=== PATIENT | female | born 1990 | race Two or more races ===

== ENCOUNTER 2025-06-04 12:03 | Emergency (ER) | payer MEDICAID, SELFPAY ==
[2025-06-04] VITALS (12 sets, daily range): BP systolic 96–164; BP diastolic 61–127; PULSE 94–143; RESP 17–22; TEMP 36.9–37; O2SAT 92–99; BMI 34.2
--- NOTE | 2025-06-04 12:16 | EKG_ITS ---
[facility] Test Date: 2025-06-04 Pat Name: FEI MANRIQUE Department: Room: - Gender: Female Security Alarm Technician: : 1990 Requested By: Frank Servin Order Number: [id number] Reading MD: Frank Servin Measurements Intervals [place] Rate: 114 P: 64 SD: 164 QRS: 15 QRSD: 93 T: 33 QT: 333 QTc: 459 Interpretive Statements SINUS TACHYCARDIA ABNORMAL RHYTHM ECG No previous ECG available for comparison /store/S0/[id number].pdf
[2025-06-04] MEDS: RINGERS LACTATED 1000 ML 1,000 ML 999 ML IV (12:29)
[2025-06-04 12:35] LABS: Basophils # (Auto) 0.1 Thou/mm3 (0.0-0.2); Basophils % (Auto) 1 % (0-2.5); Eosinophils # (Auto) 0.4 Thou/mm3 (0.0-0.5); Eosinophils % (Auto) 4 % (0-10); Hematocrit 42.4 % (36.0-46.0); Hemoglobin 14.2 g/dL (12.0-16.0); Immature Granulocytes Auto 0.03 Thou/mm3 (0.00-0.00); Lymphocytes # (Auto) 3.7 Thou/mm3 (1.0-4.8); Lymphocytes % (Auto) 39 % (10-50); Mean Corpuscular HGB Conc 33.5 g/dl (31.0-37.0); Mean Corpuscular Hemoglobin 32.4 pg (25.0-35.0); Mean Corpuscular Volume 97 fL (80-100); Monocytes # (Auto) 0.6 Thou/mm3 (0.0-0.8); Monocytes % (Auto) 6 % (0-12); Neutrophils # (Auto) 4.8 Thou/mm3 (1.8-7.7); Neutrophils % (Auto) 51 % (37-80); Nucleated Red Blood Cell # 0.00 Thou/mm3 (0.00-0.00); Nucleated Red Blood Cell % 0 /100 WBC (0); Platelet Count 241 Thou/mm3 (140-440); RDW Standard Deviation 47.8 fL (36.4-46.3); Red Blood Count 4.38 Miln/mm3 (4.00-5.20); White Blood Count 9.5 Thou/mm3 (3.6-11.0)
--- NOTE | 2025-06-04 12:35 | EDNOTE_ITS ---
ED Overdose RME/HPI General Chief Complaint: Overdose Stated Complaint: OD Time Seen by Provider: 06/04/25 12:10 Arrival date/time: 06/04/25 12:03 RME / HPI RME / HPI Narrative: 35-year-old female with past medical history of cholelithiasis brought in by ambulance to [facility] ED on 06/04/2025 with a chief complaint of suspected drug overdose. Patient seems intoxicated on presentation, unable to provide history, most history obtained from EMS, according to EMS patient was found down by and he suspected that she ingested 9 pills of [place]. Patient was not given any Narcan on the way by EMS, woke up on the way vitals fairly stable except for elevated blood pressure and tachycardia. Patient on presentation has pills of alprazolam on her and reports that she ingested multiple pills of alprazolam and took some shots of vodka to help her sleep and she has not been able to sleep for the last few days. Time of ingestion unknown as patient was found down. Patient is uncooperative, abusive to staff and seems significantly intoxicated. Patient denies any suicidal ideation in the ED however did report and endorse suicidal ideations to EMS. Patient placed on 1799 hold. Called poison control and discussed the case reported vitals EKG findings to poison control they recommended monitoring for transaminitis and obtaining acetaminophen level if there is significant transaminitis and elevated acetaminophen level they recommend N-acetylcysteine. Recommending flumazenil however is unavailable at the facility and was deferred as it can precipitate severe withdrawal. Poison control recommended monitoring patient for 4 to 6 hours and repeating CMP in 4 hours to monitor LFTs and repeating acetaminophen level. Substance Ingested [place]: Number of Pills Ingested: 9 Related Data Home Medications ?Medication ?Instructions ?Recorded ?Confirmed No Known Home Medications 06/03/22 09/06/16 Allergies Allergy/AdvReac Type Severity Reaction Status Date / Time bee venom protein (honey bee) Allergy Severe Anaphylaxis Verified 06/04/25 12:10 Review of Systems Review of Systems ROS Unobtainable: unobtainable due to mental status (Patient intoxicated) Past Medical History Past Medical History Comments PMH COMMENT: Unable to obtain, patient intoxicated ED Exam Narrative Physical exam: Physical Exam General: Awake, abusive, noncooperative, yelling at staff. HEENT: Normocephalic, atraumatic, mucous membranes moist. Heart: Sinus tachycardia, no murmurs. Lungs: Clear to auscultation with no wheezing or crackles. Abdomen: Soft, obese, nondistended, nontender, positive bowel sounds. ?No guarding or rebound tenderness. Neurologic: Patient intoxicated noncooperative does not answer, no gross neurological deficit, and patient able to move all 4 extremities. Extremities: No edema. Skin: No rash or ecchymoses. Course Course Course Narrative: EKG labs obtained postadmission. Kurtis Ho post ground-level mechanical fall called for patient at 1414, patient walked to commode to urinate, urinated on herself and slipped in her urine, ground-level fall reportedly hit her head against the wall/sink, patient is intoxicated, yelling abuses at staff. Noncooperative trying to kick staff, kurtis osullivan called at 1415, 4 point behavioral restraints initiated, security personnel at bedside, patient given 10 mg IV Haldol and [address] scan of the head ordered obtained, unremarkable. Repeat labs ordered for 1630 Quality Measures none Orders Category Date Time Status 1 HR Behavioral Restraints Q15M Care 06/04/25 14:17 Completed 1799 Psychiatric Hold NOW Care 06/04/25 12:45 Ordered Blood glucose [Bedside Blood Glucose] NOW Care 06/04/25 12:16 Active Internal Medicine Doctor Q4H START 00 Care 06/04/25 12:18 Active Continuous Pulse Oximetry NOW Care 06/04/25 12:18 Completed EKG (ED ONLY) *Do not use* NOW Care 06/04/25 12:16 Completed Insert IV NOW Care 06/04/25 12:23 Active Suicide precautions NOW Care 06/04/25 12:[address] head/brain wo con Stat Exams 06/04/25 14:22 Completed EKG (ED Only) Stat Exams 06/04/25 12:16 Draft Acetaminophen Stat Lab 06/04/25 12:28 Completed Acetaminophen Stat Lab 06/04/25 16:22 Completed Alcohol, Blood Medical Stat Lab 06/04/25 12:28 Completed CBC Stat Lab 06/04/25 12:28 Completed CK [Creatine Kinase] Stat Lab 06/04/25 12:28 Completed CMP [Comprehensive Metabolic Panel] Stat Lab 06/04/25 12:28 Completed CMP [Comprehensive Metabolic Panel] Stat Lab 06/04/25 16:22 Completed Drug Screen,Urine Stat Lab 06/04/25 12:40 Completed HCG Qualitative,Urine Stat Lab 06/04/25 12:40 Completed HCG,Qualitative Serum Stat Lab 06/04/25 12:28 Completed INR [Prothrombin Time with INR] Stat Lab 06/04/25 12:20 Completed Magnesium Stat Lab 06/04/25 12:28 Completed PTT [Partial Thromboplastin Time] Stat Lab 06/04/25 12:20 Completed Phosphorous Stat Lab 06/04/25 12:28 Completed Salicylate Stat Lab 06/04/25 12:28 Completed Urinalysis, C/S if Indicated Stat Lab 06/04/25 12:40 Completed VBG [Venous Blood Gas] Stat Lab 06/04/25 12:50 Completed Folic Acid Inj Med 06/04/25 15:35 Discontinued 1 mg IVP X1 ONE Haloperidol Lactate [Haldol Inj] Med 06/04/25 14:18 Discontinued 10 mg .ROUTE .STK-MED ONE Haloperidol Lactate [Haldol Inj] Med 06/04/25 14:15 Discontinued 10 mg IV X1 ONE Midazolam Inj [Versed Inj] Med 06/04/25 14:18 Discontinued 2 mg .ROUTE .STK-MED ONE Midazolam Inj [Versed Inj] Med 06/04/25 14:15 Discontinued 2 mg IVP X1 ONE Ringers Lactated 1000 ml [Lactated Ringers] 1,000 ml Med 06/04/25 12:23 Discontinued IV 999 mls/hr Thiamine Inj [Vitamin B-1 Inj] Med 06/04/25 15:35 Discontinued 100 mg IVP X1 ONE Referral Youth Accommodation Support Worker [facility] 06/04/25 12:21 Active Vital Signs Vital signs: Vital Signs Temperature 98.5 F 06/04/25 12:15 Pulse Rate 128 H 06/04/25 12:15 Respiratory Rate 20 06/04/25 12:15 Blood Pressure 164/127 H 06/04/25 12:15 Pulse Oximetry (%) 95 06/04/25 12:15 Oxygen Delivery Method Room Air 06/04/25 12:15 Overdose MDM Narrative MDM Narrative:: #Suicidal ideation #Suspected overdose with [place] or alprazolam #Acute intoxication Patient brought in by EMS for suspected drug overdose. Patient seems intoxicated on presentation, unable to provide history, most history obtained from EMS, according to EMS patient was found down by and he suspected that she ingested 9 pills of [place]. Patient was not given any Narcan on the way by EMS, woke up on the way vitals fairly stable except for elevated blood pressure and tachycardia. On presentation has pills of alprazolam on her and reports that she ingested multiple pills of alprazolam and took some shots of vodka to help her sleep and she has not been able to sleep for the last few days. Time of ingestion unknown as patient was found down. Patient is uncooperative, abusive to staff and seems significantly intoxicated. Patient denies any suicidal ideation in the ED however did report and endorse suicidal ideations to EMS. Patient placed on 1799 hold. Discussed with Poison control reported vitals EKG findings to poison control they recommended monitoring for transaminitis and obtaining acetaminophen level if there is significant transaminitis and elevated acetaminophen level they recommend N-acetylcysteine. Recommending flumazenil however is unavailable at the facility and was deferred as it can precipitate severe withdrawal. Poison control recommended monitoring patient for 4 to 6 hours and repeating CMP in 4 hours to monitor LFTs and repeating acetaminophen level. EKG post admission shows sinus tachycardia Heart rate 114, QTc 459, QRS 93 CBC obtained benign, no abnormalities, VBG shows pH 7.39, pCO2 41 CMP shows sodium 147, chloride 111, phosphorus 1.9 CK 176 liver enzymes within normal limits Urinalysis negative for infection Drug screen shows blood alcohol level +314.2, marijuana positive Given 1L LR bolus, 1mg Folic Acid and IV Thiamine Code Star post ground-level mechanical fall called for patient at 1414, patient walked to commode to urinate, urinated on herself and slipped in her urine, ground-level fall reportedly hit her head against the wall/sink, patient is intoxicated, yelling abuses at staff. Noncooperative trying to kick staff, kurtis osullivan called at 1415, 4 point behavioral restraints initiated, security personnel at bedside, patient given 10 mg IV Haldol and [address] scan of the head ordered obtained post fall, unremarkable. Repeat CMP and Acetaminophen ordered for 1630 Case discussed with Attending Physician Dr. Devin Servin MD Internal Medicine PGY-2 Disclaimer: This note was dictated by speech recognition. Minor errors in sign builder supervisor may be present due to voice recognition software. Patient data External records reviewed:: [facility] previous records and EMS form Clinical information provided by:: patient and EMS Social determinants that could affect healthcare access:: mental health Patient has the following chronic illnesses:: None How is presenting disease/condition affected by chronic disease/condition?: no chronic disease Evaluation data The following diagnostics were reviewed and interpreted by me:: lab results, radiology exam(s) and EKG tracing(s) Lab and/or radiology exams considered but not ordered:: None Interpretation Summary: EKG post admission shows sinus tachycardia Heart rate 114, QTc 459, QRS 93 CBC obtained benign, no abnormalities, VBG shows pH 7.39, pCO2 41 CMP shows sodium 147, chloride 111, phosphorus 1.9 CK 176 liver enzymes within normal limits Urinalysis negative for infection Drug screen shows blood alcohol level +314.2, marijuana positive CT scan of the head ordered obtained post fall, unremarkable. Medications / Prescriptions Medications or Prescriptions considered but not ordered:: None Medication administrations:: Medication Administration History Discontinued Medications Folic Acid (Folic Acid Inj 1 Mg/0.2 Ml) 1 mg IVP X1 ONE Stop: 06/04/25 15:36 Last Admin: 06/04/25 16:14 Dose: 1 mg Documented By: BY Haloperidol Lactate (Haloperidol Lact Inj 5 Mg/Ml Vial) 10 mg IV X1 ONE Stop: 06/04/25 14:16 Last Admin: 06/04/25 14:25 Dose: 10 mg Documented By: TM Haloperidol Lactate (Haloperidol Lact Inj 5 Mg/Ml Vial) Confirm Administered Dose 10 mg .ROUTE .STK-MED ONE Stop: 06/04/25 14:19 Last Admin: 06/04/25 14:26 Dose: Not Given Documented By: TM Non-Admin Reason: Override Medication Lactated Ringer's (Lactated Ringers) 1,000 mls @ 999 mls/hr IV .Q1H1M ONE Stop: 06/04/25 13:23 Last Infusion: 06/04/25 13:30 Dose: Infused Documented By: Admin: 06/04/25 12:29 Dose: 999 mls/hr Documented By: BY Midazolam HCl (Midazolam Inj 1 Mg/Ml Vial 2 Ml) 2 mg IVP X1 ONE Stop: 06/04/25 14:16 Last Admin: 06/04/25 14:23 Dose: 2 mg Documented By: TM Midazolam HCl (Midazolam Inj 1 Mg/Ml Vial 2 Ml) Confirm Administered Dose 2 mg .ROUTE .STK-MED ONE Stop: 06/04/25 14:19 Last Admin: 06/04/25 14:26 Dose: Not Given Documented By: TM Non-Admin Reason: Override Medication Thiamine HCl (Thiamine Inj 100 Mg/Ml Vial 2 Ml) 100 mg IVP X1 ONE Stop: 06/04/25 15:36 Last Admin: 06/04/25 16:05 Dose: 100 mg Documented By: BY As Above Consultations Consultation(s) initiated? (list below): Yes Consultation #1 (Physician, Specialty, Details): Poison control, recommendations as above Diagnosis Overdose Differential Diagnosis: suicide attempt by multiple drug overdose and drug overdose Most likely diagnosis given after review of the tests above:: Suicidal ideation, will need social work case manager clearance after medically clear Admission Indicated Admission indicated?: not indicated Admission Request Was there a request for admission?: No Disposition Plan Disposition Plan: other (specify) (Will be signed out to night ED physician) Discharge Plan Prescriptions/Referrals Prescriptions/Med Rec: No Action No Known Home Medications Referrals: No Primary/Family,Physician [Primary Care Provider] - In 1 week Problem List Clinical Impression: Suicide attempt by multiple drug overdose Patient/Caregiver Discharge Instructions Print Language: Welsh Attestation Attestation I, Dr. Beltran, have reviewed the history, exam, and assessment of the patient. I have evaluated the patient independently and agree with the plan of care documented by Dr. Servin. All diagnostic studies were reviewed and discussed. I confirm the diagnosis as documented by the Resident. I was present during the Medical Decision Making for this patient. The patient's plan of care was created between myself and the Resident and consistent with our discussion of the patient's case.
[2025-06-04 12:50] LABS: Collection Type, Urine Clean Catch; RBC,Urine 0 /hpf (0-3)
[2025-06-04 12:58] LABS: HCG,Qualitative Serum Negative
--- NOTE | 2025-06-04 12:59 | PC.NURSE ---
patient is being uncooperative and verbally defiant, was upset about blood being taken for lab , patient educated on the reason why those needed to be done patient started on a 7131 @ 1550
[2025-06-04 13:01] LABS: INR 0.9 (0.9-1.3); Partial Thromboplastin Time 24.9 Seconds (22.0-36.0); Prothrombin Time 9.8 Seconds (9.0-12.2)
[2025-06-04 13:06] LABS: Base Excess, Venous 0 (-3-3); O2 Saturation, Venous 98 % (96-97); PCO2, Venous 41 mmHg (36-56); PO2, Venous 101 mmHg (15-58); pH, Venous 7.39 (7.33-7.66)
[2025-06-04 13:14] LABS: Bilirubin,Urine Negative (Negative); Blood,Urine Negative (Negative); Clarity,Urine Clear (Clear/Hazy); Color,Urine Colorless (Lt Yel-Yel); Culture Indicated,Urine Not Indicated; Glucose, Urine Negative (Negative); Ketones,Urine Negative (Negative); Leukocyte Esterase,Urine Negative (Negative); Nitrite,Urine Negative (Negative); PH,Urine 6.5 (5.0-7.0); Protein,Urine Negative (Neg - Trace); Specific Gravity,Urine 1.004 (1.001-1.035); Squamous Epithelial Cell,Urine < 1 /hpf (0-5); Urobilinogen,Urine Negative mg/dL (0.0-1.0); WBC,Urine < 1 /hpf (0-5)
--- NOTE | 2025-06-04 13:16 | PC.NURSE ---
patient placed on a 1799 and is to be evaluated by psych, is currently being monitored by manager research development
[2025-06-04 13:22] LABS: HCG Qualitative,Urine Negative
[2025-06-04 13:30] LABS: Acetaminophen < 2.0 mcg/mL (10.0-20.0); Alanine Aminotransferase 44 U/L (10-49); Albumin, Serum 4.6 gm/dL (3.5-5.0); Albumin/Globulin Ratio 1.9 (1.2-2.2); Alcohol, Blood Medical 314.2 mg/dL (0-10.0); Alkaline Phosphatase 78 U/L (46-116); Anion Gap 11 (7-16); Aspartate Amino Transferase 41 U/L (0-34); BUN/Creatinine Ratio 10 Ratio (12-20); Bilirubin,Total 0.4 mg/dL (0.3-1.2); Blood Urea Nitrogen 8 mg/dL (9-23); Calcium 9.4 mg/dL (8.3-10.6); Calcium (Corrected) 9.4 mg/dL (8.5-10.1); Carbon Dioxide 24.9 mMol/L (20.0-31.0); Chloride 111 mMol/L (98-107); Creatine Kinase 176 U/L (34-171); Creatinine (Component) 0.8 mg/dL (0.6-1.3); Estimated Creatinine Clearance 118.7 mL/min (>60); Globulin 2.4 gm/dL (2.3-3.5); Glucose 107 mg/dL (74-106); Magnesium 2.1 mg/dL (1.6-2.6); Osmolality,Calculated 290 (275-295); Phosphorous 1.9 mg/dL (2.4-5.1); Potassium 3.5 mMol/L (3.4-5.1); Salicylate < 3.0 mg/dL; Sodium 147 mMol/L (136-145); Total Protein 7.0 gm/dL (5.7-8.2); eGFR > 60 See Note
[2025-06-04 13:36] LABS: Amphetamine/Methamp Scrn,U Negative (Negative); Barbiturate Screen,Urine Negative (Negative); Benzodiazepines Screen,Urine Negative (Negative); Benzoylecgonine Screen, Ur Negative (Negative); Fentanyl Screen,Urine Negative (Negative); Opiate Screen,Urine Negative (Negative); THC Screen,Urine Positive (Negative)
--- NOTE | 2025-06-04 14:17 | PC.NURSE ---
PATIENT IN ED ROOM 16. PATIENT ON 1798 HOLD FOR SUICIDAL IDEATION AND OVERDOSE THAT OCCURRED TODAY PRIOR TO COMING IN. CODE KIA CALLED AT 1414 FOR PATIENT. CODE AGUSTO CALLED AT 1415. PATIENT WAS BEING SEEN BY CASE MANAGEMENT WHEN SHE URINATED ON HERSELF AND FLOOR AND SLIPPED IN HER URINE. PATIENT WAS ASSISTED BY MULTIPLE STAFF BACK TO [facility]. PATIENT CONTINUED TO SCREAM AT STAFF AND KICK AND HIT STAFF. PATIENT DID HIT HER HEAD AT TIME OF FALL. PATIENT PLACED ON [address] PO[address]RAINTS PER DR. MOBLEY ORDER. PATIENT GIVEN IV MEDICATION FOR AGITATION.
--- NOTE | 2025-06-04 14:22 | XR_ITS ---
Examination: CT brain head without contrast. 2-D sagittal coronal reconstructions Date and time of exam:June 04, 2025, 1445 hours INDICATIONS: Patient fell today with injury to the back of the head, head pain CTDI: vol (mGy):52.5 DLP: (mGycm):1068 Technique: Multiple CT axial sections of the brain have been obtained, 5 mm slice thickness. Contrast has not been administered. 2-D sagittal, coronal reconstructions have been obtained Low dose protocols were performed. One or more of the following dose reduction techniques were used; automated exposure control, adjustment of the mA and/or KV according to patient size, use of iterative reconstruction technique. Findings: No significant ventricular enlargement. Intra-axial or extra-axial hemorrhage density is not seen. No mass effect or midline shift Basal cisterns are not remarkable. Fourth ventricle is midline. Cranial vault intact. Impression: Negative for acute hemorrhage, mass effect or midline shift
[2025-06-04] MEDS: MIDAZOLAM INJ 1 MG/ML VIAL 2 ML 2 MG IVP (14:23)
[2025-06-04] MEDS: HALOPERIDOL LACT INJ 5 MG/ML VIAL 10 MG IV (14:25)
--- NOTE | 2025-06-04 14:27 | PC.CC ---
1400-ASW saw pts chart on the tracker and all screening where green which indicates medical clearance. ASW entered the room with ROLLER STITCHER Nutrition Coordinator Daphnie Perez and the sitter Rancho was trying to sit the pt down as she was trying to get up. ASW asked pt to give me a few minutes to talk with the pt, but never asked sitter Rancho to leave the room. However, the sitter walked out and when ASW asked pt if she was okay, ASW then noticed that pt was urinated on and she attempted to get up. Pt then got up and slipped on her urine and hit her head on the supply shelf. A code star was called and the sitter hurried back to the pts room. Medical staff attempted to assist pt back on her bed. Later, ER Director Hilda and Chief RN Zully Evans asked ASW what transpired and what ASW witnessed. ASW reported what ASW mentioned in this note.
--- NOTE | 2025-06-04 14:36 | PC.NURSE ---
patient was noted to be very agitated ,patient is now in restrints, and continuese to be yelling and stating to leave her alone, patient is currently being monitored for 1798 and has a sitter at bedside,
--- NOTE | 2025-06-04 14:42 | PC.NURSE ---
patient taken for ct
--- NOTE | 2025-06-04 15:00 | PC.NURSE ---
patient currently sleeping, not presenting harm to self, restraint taken off at this time.
--- NOTE | 2025-06-04 15:18 | PC.NURSE ---
mother of patient was by to see how she was doing,left a number to call if she is needed , dwayne
[2025-06-04] MEDS: THIAMINE INJ 100 MG/ML VIAL 2 ML IVP (16:05)
[2025-06-04] MEDS: FOLIC ACID INJ 1 MG/0.2 ML IVP (16:14)
[2025-06-04 17:15] LABS: Acetaminophen < 2.0 mcg/mL (10.0-20.0); Alanine Aminotransferase 39 U/L (10-49); Albumin, Serum 3.9 gm/dL (3.5-5.0); Albumin/Globulin Ratio 1.8 (1.2-2.2); Alkaline Phosphatase 67 U/L (46-116); Anion Gap 9 (7-16); Aspartate Amino Transferase 41 U/L (0-34); BUN/Creatinine Ratio 8 Ratio (12-20); Bilirubin,Total 0.3 mg/dL (0.3-1.2); Blood Urea Nitrogen 6 mg/dL (9-23); Calcium 8.4 mg/dL (8.3-10.6); Calcium (Corrected) 8.5 mg/dL (8.5-10.1); Carbon Dioxide 26.0 mMol/L (20.0-31.0); Chloride 114 mMol/L (98-107); Creatinine (Component) 0.8 mg/dL (0.6-1.3); Estimated Creatinine Clearance 118.7 mL/min (>60); Globulin 2.2 gm/dL (2.3-3.5); Glucose 100 mg/dL (74-106); Osmolality,Calculated 293 (275-295); Potassium 3.5 mMol/L (3.4-5.1); Sodium 149 mMol/L (136-145); Total Protein 6.1 gm/dL (5.7-8.2); eGFR > 60 See Note
--- NOTE | 2025-06-04 18:06 | EDNOTE_ITS ---
Emergency Room Addendum <Roxane Weller - Last Filed: 06/05/25 04:16> Addendum Narrative: I took over the care from Dr. Servin (attending Dr. Beltran) at 6 PM on 06/04/2025, see his notes for complete H&P and ED course. I reviewed all diagnostic test results. At this point, diagnoses include: Suicidal behavior Alcohol intoxication Treatment here from tn included: IV fluid Valium 10mg IVP Benadryl 50mg IVP Pending evaluation by our ED Making Machine Operator in the morning. Patient is medically cleared for further psychiatric care. At 6 AM on 06/05/2025, the care of the patient was transferred to Dr. Burton. During my watch, the patient remained stable. Zaki Rea MD <Zaki Rea MD - Last Filed: 06/05/25 04:16> Addendum Narrative: I took over the care from Dr. Servin (attending Dr. Beltran) at 6 PM on 06/04/2025, see his notes for complete H&P and ED course. I reviewed all diagnostic test results. At this point, diagnoses include Treatment here from me included: IV fluid Valium 10mg IVP Benadryl 50mg IVP Pending evaluation by our ED Making Machine Operator in the morning. At 6 AM on 06/05/2025, the care of the patient was transferred to Dr. Burton. During my watch, the patient remained stable. Zaki Rea MD
[2025-06-04] MEDS: DIAZEPAM INJ 5 MG/ML VIAL 2 ML 10 MG IVP (20:29)
[2025-06-04] MEDS: RINGERS LACTATED 1000 ML 1,000 ML 100 ML IV (20:30)
--- NOTE | 2025-06-05 00:04 | PC.NURSE ---
1950RECEIVED CALL FROM POISON CONTROL REQUEST LAB INFORMATION. WITH CURRENT LAB INFORMATION POISON CONTROL STATES THEY ARE ABLE TO CLOSE THIS CASE.
[2025-06-05 00:26] VITALS: BP 108/82; PULSE 94; RESP 18; TEMP 37.1; O2SAT 96
[2025-06-05 04:01] LABS: Alcohol, Blood Medical < 3.0 mg/dL (0-10.0); Anion Gap 9 (7-16); BUN/Creatinine Ratio 10 Ratio (12-20); Blood Urea Nitrogen 7 mg/dL (9-23); Calcium 9.0 mg/dL (8.3-10.6); Carbon Dioxide 26.8 mMol/L (20.0-31.0); Chloride 111 mMol/L (98-107); Creatinine (Component) 0.7 mg/dL (0.6-1.3); Estimated Creatinine Clearance 135.7 mL/min (>60); Glucose 92 mg/dL (74-106); Osmolality,Calculated 290 (275-295); Potassium 4.0 mMol/L (3.4-5.1); Sodium 147 mMol/L (136-145); eGFR > 60 See Note
[2025-06-05 06:22] VITALS: BP 125/96; PULSE 94; RESP 18; TEMP 36.6; O2SAT 96
--- NOTE | 2025-06-05 08:45 | PC.NURSE ---
pt demanding that we take her ivl out. pt stating I don't want to fucken be here. pt cussing and being uncooperative with staff. juanita huff called.
--- NOTE | 2025-06-05 08:47 | PC.NURSE ---
social media content manager at bedside speaking with pt
--- NOTE | 2025-06-05 09:10 | PC.NURSE ---
pt demanding her belongings stating that it is her property. per case management assistant give pt her belongings because we can not deny pt her belongings/property. pt was advised by Heidy case management assistant that she is on a 5150 hold and we will have to contact police if she leaves. pt stated I dont give a fuck .
--- NOTE | 2025-06-05 09:11 | PC.CC ---
Addendum entered by Diana Friedman 06/05/25 10:23: It should be known that pts correct address is [facility] [address] [place] [address].. Spouses Name is Gopal Fitzpatrick [phone]. Addendum entered by Diana Friedman 06/05/25 10:05: strategic planner called [employer], Officer Nithin and Miguel A responded and detained pt. Pt was placed in the lobby, but walked to the Main Entrance of the hospital. [employer] spoke with Pt and she is aware that she is on a 5150, Per LE, they tried to convince pt to come back to her room, but she refused. Pt remains at the front of the hospital sitting on the bench. She told LE she is waiting for her spouse to pick her up. UTE . Original Note: 0845-ASW attempted to complete an MH evaluation with the pt, but pt was highly uncooperative. ASW thoroughly explained the reason for the assessment and the process. However, pt was still not cooperative. Pt was visibly and verbally upset. Pt told ASW to get the fuck out, I don't care what you have to say, and I don't want to fucken safety plan with anyone, just leave me alone. Pt is medically cleared, is present to place, time and environment. Pt stated she does not remember how she arrived to the ED but remembers she was arguing with her spouse yesterday, kicked her family out of the apartment and admitted to drinking alcohol. Pt denied taking 9 [place] pills to end her life and denied taking any other medications as attempts to end her life. Pt stated she did not try to end her life, denies SI/HI. Denies using illicit controlled substances. Pt was presented with the option for a safety plan, but she was highly uncooperative and refused. Pt stated, I don't give a fuck, I don't want to safety plan with anyone. I just want to go home. Get the fuck out. ASW repeatedly attempted to talk to pt about the evaluation process and pt refused to cooperate. ASW staffed with BOTTOMING ROOM INSPECTOR, Director Danny Ibrahim and it was determined that pt will be placed on a 5150 Hold for DTS for attempted OD to end her life. ER provider is aware and he too was unable to speak with the pt as she was uncooperative. strategic planner is aware and she too was unable to reason with pt as she was uncooperative. ASW informed pt that she was placed on a 5150 Hold and she stated she will leave and doesn't give a fuck.
--- NOTE | 2025-06-05 09:24 | PC.NURSE ---
called [employer] to inform pt left while on a 5150 hold. Spoke with Kassie, gave name and of pt and description of what she is wearing. stated she will send an officer to patrol the area to see if they can locate her.
--- NOTE | 2025-06-05 10:20 | PD.EDADDENDU ---
Emergency Room Addendum Addendum Narrative: 0600: Care assumed from Dr. Rea, the previous shift emergency physician. Past medical, surgical, social and family history reviewed. Vitals and home medications reviewed. I will assume the care of the patient at this time, pending mental health evaluation and final disposition. Please refer to the emergency department record for history and examination from initial visit.?The following addendum documentation note is intended to reflect any pending information, findings, or radiology results not included in the patient?s initial chart. 09: Patient became agitated and left the emergency room, Rodolfo SUAREZ was contacted. Per RN, the patient was found by Rodolfo SUAREZ. However, stated they would not force the patient to return in spite of being on a 5150 hold.
--- NOTE | 2025-06-05 10:20 | PC.NURSE ---
[employer] came, stated they spoke w/pt and pt refused to come back so they let her go. [employer] aware pt is on a 5150 hold
== END 2025-06-05 09:25 | disposition left against medical advice (07) ==
PROVIDERS: Emergency Medicine; Emergency Provider Family Medicine
DX: T50.902A Poisoning by unspecified drugs, medicaments and biological substances, intentional self-harm, initial encounter (principal); T42.4X2A Poisoning by benzodiazepines, intentional self-harm, initial encounter; R00.0 Tachycardia, unspecified; F10.129 Alcohol abuse with intoxication, unspecified; Y90.8 Blood alcohol level of 240 mg/100 ml or more; R03.0 Elevated blood-pressure reading, without diagnosis of hypertension; S09.90XA Unspecified injury of head, initial encounter; W01.198A Fall on same level from slipping, tripping and stumbling with subsequent striking against other object, initial encounter; Y93.89 Activity, other specified; Y92.238 Other place in hospital as the place of occurrence of the external cause; Z78.1 Physical restraint status; Z53.29 Procedure and treatment not carried out because of patient's decision for other reasons
CPT/HCPCS: 36415; 70450; 80048; 80053; 80307; 80320; 80329; 81001; 81025; 82550; 82803; 83735; 84100; 84703; 85025; 85610; 85730; 93005; 96127; 96361; 96374; 96375; 99285; J1200; J1630; J2250; J3360; J3411; J3490; J7120; G0480